=== PATIENT | female | born 1955 | race Caucasian/White ===

== ENCOUNTER → 2020-05-01 | Outpatient (CLI) | payer BC, OTHER ==
[2020-05-01 16:04] VITALS: BP 101/65; PULSE 76; RESP 18; TEMP 97.8
--- NOTE | 2020-05-01 16:20 | P.GSHP ---
History of Present Illness H&P Date: 05/01/20 Chief Complaint: abnormal left breast mammogram and ultrasound [place] is a 65 year old white female seen in consultation for Keerthi Flor regarding a mammographic and ultrasound abnormality in the left breast. On 02-27-20 she had a bilateral screening mammogram for which a left breast mammogram was recommended. She had a left breast mammogram on 03-19-20 which revealed an area of microcalcifications for which stero biopsy was recommended. She also had an ultrasound and at the 9 oclock position an aspiration was recommended which if this failed a core biopsy of site recommended. The patient does not feel anything of concern in either breast. She is not complaining of any pain in her breast. She is not complaining of any abnormal nipple discharge or skin changes. Caffeine: Occasional Nicotine: none [place]-bromine: occasional hormone: none Family History: maternal uncle: prostate Hormonal History: menarche: 18 , breast fed: yes, age at first : 27 menopause: hysterectomy left one ovary; at 40 BCP: 3 years Surgical History: hysterectomy and one ovary tonsillectomy knee surgery cataract bilateral Medical History: diabetes HTN Social History: nicotine: none alcohol: none drugs: none - Constitutional Constitutional: Denies chills, Denies fever - EENT Comment: bilateral cataracts Ears: deny: decreased hearing, tinnitus Ears, nose, mouth and throat: Reports headache - Breasts Breasts: bilateral: as per HPI - Cardiovascular Cardiovascular: Denies chest pain, Denies shortness of breath - Respiratory Respiratory: Denies cough, Denies 7 - Gastrointestinal Gastrointestinal: Denies abdominal pain, Denies diarrhea, Denies nausea, Denies vomiting - Genitourinary (Female) Genitourinary: Reports kidney stones, Denies dysuria, Denies hematuria - Menstruation Menstruation: Reports post hysterectomy - Musculoskeletal Comment: arthritis - Integumentary Integumentary: Denies pruritus, Denies rash - Neurological Neurological: Reports numbness, Reports weakness - Psychiatric Psychiatric: Denies anxiety - Endocrine Comment: diabetic Endocrine: Reports weight change, Denies fatigue - Hematologic/Lymphatic Comment: none - Allergic/Immunologic Allergic/Immunologic: Reports seasonal allergies Past Medical History Past Medical History: Diabetes Mellitus, Deep Vein Thrombosis (DVT), Hypertension Additional Past Medical History / Comment(s): DVT . History of Any Multi-Drug Resistant Organisms: None Reported Past Surgical History: Hysterectomy, Orthopedic Surgery, Tonsillectomy Additional Past Surgical History / Comment(s): Left knee tedon repair Past Anesthesia/Blood Transfusion Reactions: No Reported Reaction Past Psychological History: Anxiety Smoking Status: Never smoker Past Alcohol Use History: Rare Past Drug Use History: None Reported Medications and Allergies Home Medications Medication Instructions Recorded Confirmed Type ALPRAZolam [Xanax] 0.25 mg PO BID PRN 04/22/20 04/22/20 History B Complex-Vit C-Vit E-Zinc [Z-Bec] 1 tab PO DAILY 04/22/20 04/22/20 History Cinnamon Bark [Cinnamon] 500 mg PO DAILY 04/22/20 04/22/20 History Lisinopril-Hctz 20-25 mg 1 tab PO DAILY 04/22/20 04/22/20 History [Zestoretic 20-25] metFORMIN HCL 250 mg PO BID 04/22/20 04/22/20 History Allergies Allergy/AdvReac Type Severity Reaction Status Date / Time aloe vera [From Dermoplast] Allergy Rash/Hives Verified 04/25/20 16:48 bacitracin Allergy Rash/Hives Verified 04/25/20 16:48 [From Neosporin ([id number])] benzocaine [From Dermoplast] Allergy Rash/Hives Verified 04/25/20 16:48 lanolin [From Dermoplast] Allergy Rash/Hives Verified 04/25/20 16:48 neomycin Allergy Rash/Hives Verified 04/25/20 16:48 [From Neosporin ([id number])] Penicillins Allergy Swelling Verified 04/22/20 16:13 polymyxin B Allergy Rash/Hives Verified 04/25/20 16:48 [From Neosporin ([id number])] prednisone Allergy Swelling Verified 04/22/20 16:13 cephalexin [From Keflex] AdvReac Nausea & Verified 04/22/20 16:13 Vomiting Surgical - Exam BMI 33.6 - General well developed, well nourished, no distress - Eyes normal ocular movement - ENT normal pinna, normal nares, no hearing loss - Neck no masses, trachea midline - Respiratory normal expansion, normal respiratory effort, clear to auscultation - Cardiovascular Rhythm: regular Heart Sounds: normal: S1, S2 - Abdomen Abdomen: soft - Integumentary normal turgor - Neurologic no disoriented, no combative - Musculoskeletal Patient has scoliosis normal gait - Psychiatric oriented to time, oriented to person, oriented to place, speech is normal, memory intact breast exam: BRA: 46DD inspection: grade 3 ptosis bilateral, macromastia, bilateral shoulder notching related to large breast palpation: right breast: Multi-positional exam fibrocystic changes, no dominant masses or nodules of concern Right axilla: No adenopathy of concern Left breast: Multiple positional exam fibrocystic changes, no dominant masses or nodules of concern Left axilla: No adenopathy of concern Results Mammogram and ultrasound results reviewed Assessment and Plan Assessment: Impression: diabetes HTN Abnormal mammogram left breast upper outer quadrant microcalcifications Abnormal ultrasound left breast 9 o'clock position Fibrocystic breast changes Macromastia with shoulder notching Back pain probably related to large breast Plan: 1. Left breast sterotactic core biopsy upper outer quadrant 2. Left breast ultrasound aspiration/possible core biopsy 9 o'clock position 3. Follow-up after biopsies done The patient has been recommended to undergo a sterile tactic core biopsy of the left breast upper outer quadrant area for the region of microcalcifications. Alternatives are discussed but not recommended such as watchful waiting or open biopsy. The risks of the procedure include but are not limited to bleeding, infection, reaction to the anesthetic. Following the biopsy clip will be left to localize the area of biopsy. Patient understands and wishes to proceed. Additionally a radiographic ultrasound abnormality was noted in the 9 o'clock position of the left breast for which attempt at aspiration is recommended. If this is unsuccessful ultrasound core biopsy has been recommended. Again risks include but are not limited to bleeding, infection, reaction to the anesthetic. A clip again with the left behind depending on the biopsy. The patient u nderstands and wishes to proceed. She also understands that if this was discordant or was felt that the area was not adequately sampled or atypical than its possible open resection may be needed. Cc: Dr.Lori Flor encounter 45 minutes, > 50% of time in planning and counselling
== END | disposition home or self-care (01) ==
LOC: WWCWWP 15:36
PROVIDERS: ATTEND Surgery
DX: Z53.9 Procedure and treatment not carried out, unspecified reason (principal)

== ENCOUNTER → 2020-05-02 | Day surgery (SDC) | payer BC, OTHER ==
[2020-05-02 07:23] VITALS: RESP 16
--- NOTE | 2020-05-02 08:46 | P.PCN ---
Date of Procedure: 05/02/20 Preoperative Diagnosis: Microcalcifications of concern left breast upper outer quadrant Postoperative Diagnosis: Same Procedure(s) Performed: Stereotactic core biopsy left breast Anesthesia: local Surgeon: Felicitas Lopes Pathology: other (Breast tissue, radiograph reveals calcifications of concern have been sampled) Condition: stable Disposition: same day Indications for Procedure: Microcalcifications of concern left breast Operative Findings: Radiographic of specimen reveals microcalcifications of concern Description of Procedure: The patient is a 65-year-old white female who had a routine mammogram revealing some microcalcifications of concern in the upper outer quadrant of the left breast. Stereotactic core biopsy was recommended. Risks and benefits of the procedure were discussed with the patient as well as alternatives. Patient wished to proceed. The patient was taken to the stereotactic core biopsy room. CC from above approach was utilized. She was positioned prone on the low rad table. A web development manager film was obtained. The calcifications of concern were identified. The skin was prepped using Betadine. 20 mL of 1% lidocaine were used to anesthetize the area of concern. A 9-gauge vacuum-assisted core rotating biopsy needle was driven to the correct coordinates. The needle was fired. Post fire film was obtained. The needle was noted to be in the correct location. 12 specimens were obtained. Radiograph of the specimen revealed the calcifications of concern had been sampled. A secure marked Top-glass forming engineer was placed. An x-ray was attained which revealed this to be in the correct location. The patient tolerated the procedure in stable condition. The specimen is sent to pathology. The patient will follow with Dr. Allen in 1 week. It is felt that the area of concern has been adequately sampled.
[2020-05-02 09:02] VITALS: BP 105/65; PULSE 65; TEMP 98.5
--- NOTE | 2020-05-02 11:53 | USB ---
EXAMINATION TYPE: US discontinued breast asp LT DATE OF EXAM: 05/02/2020 Comparison: Outside ultrasound 05/21/2019 Clinical History: 65-year-old female abnormal mammogram, referred for cyst aspiration/biopsy on the l eft. TECHNIQUE AND FINDINGS: The patient was positioned on the exam stretcher and the 9:00 lesion, Zone-A is identified, correspon ding to the finding on outside mammogram. The area now measures 3 mm and appears cystic versus the 5 mm hypoechoic structure on outside ultrasound. Suspect interval clearing of internal debris. Biopsy i s being deferred at this time. Six-month follow-up is recommended to reassess the mammographic densit y and this area as well. IMPRESSION: 1. Patient had left breast stereotactic core needle biopsy earlier today for calcifications. Patholog y pending. Overall BI-RADS assessment category 4 at this time. RECOMMENDATION: 1. If benign results for the stereotactic core needle biopsy, six-month follow-up diagnostic left kelly ast mammogram and targeted 9:00 left breast ultrasound will be recommended.
--- NOTE | 2020-05-02 11:58 | MM ---
EXAMINATION TYPE: MG stereo VAD BX LT DATE OF EXAM: 05/02/2020 COMPARISON: 03/20/2020 CLINICAL HISTORY: 65-year-old female referred for stereotactic core needle biopsy of left upper outer quadrant microcalcifications. TECHNIQUE: Stereotactic guided core biopsy of the upper outer quadrant left breast. FINDINGS: The procedure of stereotactic guided core biopsy was explained to the patient. Benefits, a lternatives, and risks were discussed. An informed consent was then obtained. [facility]. Shortness pathway was a lateral approach. However, the patient was in too much pain for this position and a CC from above approach was utilized. I performed the localization, then surgeon, Dr. Alejandro Orr performed the remainder of the procedure. A vacuum a ssisted biopsy gun was used to obtain multiple core samples. The patient tolerated the procedure well without any immediate complication. The patient was kept in the radiology department for short stay after the procedure and then discharged home in stable condi tion. Targeted calcifications are identified in specimen mammogram. Post biopsy mammogram shows the clip to appear in satisfactory position relative to the targeted area of concern on the preprocedure images. IMPRESSION: SUCCESSFUL, UNCOMPLICATED STEREOTACTIC GUIDED CORE BIOPSY UPPER OUTER QUADRANT LEFT BREAST LOOSELY GR OUPED MICROCALCIFICATIONS, OVERALL LOW SUSPICION, FULL PATHOLOGY RESULTS TO FOLLOW. NOTE THAT PATIENT IS SCHEDULED FOR AN ULTRASOUND-GUIDED LEFT BREAST BIOPSY/CYST ASPIRATION LATER MARI Sebastian
== END ==
LOC: RADMAMWWP 06:59
PROVIDERS: ATTEND Surgery
DX: N60.12 Diffuse cystic mastopathy of left breast (principal); R92.1 Mammographic calcification found on diagnostic imaging of breast; Z91.048 Other nonmedicinal substance allergy status; Z88.8 Allergy status to other drugs, medicaments and biological substances; Z88.0 Allergy status to penicillin; Z88.1 Allergy status to other antibiotic agents; Z88.4 Allergy status to anesthetic agent
CPT/HCPCS: 88305; 19081; 76641; A4648; J2001

== ENCOUNTER → 2020-05-08 | Outpatient (CLI) | payer BC, OTHER ==
[2020-05-08 12:36] VITALS: BP 108/67; PULSE 68; RESP 18; TEMP 98.4
--- NOTE | 2020-05-08 12:43 | P.PN ---
Subjective Progress Note Date: 05/08/20 Principal diagnosis: stero biopsy results [place] is a 65 year old white female status post a stero biopsy of the left breast on 05-02-20. Pathology was concordant and benign. The patient did well without any complaints. Objective - Vital Signs Vital signs: Vital Signs Temp 98.4 F 05/08/20 12:33 Pulse 68 05/08/20 12:33 Resp 18 05/08/20 12:33 BP 108/67 05/08/20 12:33 Pulse Ox 97 05/08/20 12:33 Intake & Output 05/07/20 05/08/20 05/08/20 18:59 06:59 18:59 Weight 94.801 kg - Exam BMI 33.7 - Constitutional General appearance: Present: average body habitus - EENT Eyes: Present: EOMI - Neck Neck: Present: normal ROM - Respiratory Respiratory: bilateral: CTA - Cardiovascular Rhythm: regular Heart sounds: normal: S1, S2 - Integumentary Integumentary Comment(s): biopsy site reaction to the Steri-Strips which is resolving Mild ecchymosis no evidence of hematoma or infection - Musculoskeletal Musculoskeletal: Present: gait normal - Psychiatric Psychiatric: Present: A&O x's 3, appropriate affect Assessment and Plan Assessment: Impression: Fibrocystic breast changes stereo biopsy left breast Plan: 1. Repeat left breast mammogram in 6 months with physician exam at that time CC: Basia encounter 15 minutes, > 50% of time in planning and counselling
== END | disposition home or self-care (01) ==
LOC: WWCWWP 12:01
PROVIDERS: ATTEND Surgery
DX: Z53.9 Procedure and treatment not carried out, unspecified reason (principal)

== ENCOUNTER → 2020-10-31 | Outpatient (CLI) | payer BC, OTHER ==
--- NOTE | 2020-10-31 12:43 | MM ---
Reason for exam: history of benign breast biopsy. History: Benign MG stereo VAD BX LT of the left breast, May 02, 2020. Physical Findings: Nurse did not find any significant physical abnormalities on exam. MG 3D Diag Mammo W/Cad LT CC and MLO view(s) were taken of the left breast. The breast tissue is heterogeneously dense. This may lower the sensitivity of mammography. Benign calcifications. Previous mammotome biopsy in the left breast. There is chronic nodularity in the left breast. These results were verbally communicated with the patient and result sheet given to the patient on 10/31/20. ASSESSMENT: Benign, BI-RAD 2 RECOMMENDATION: Follow-up diagnostic mammogram of both breasts in 6 months.
== END | disposition home or self-care (01) ==
LOC: RADMAMWWP 11:06
PROVIDERS: ATTEND Surgery
DX: R92.8 Other abnormal and inconclusive findings on diagnostic imaging of breast (principal)
CPT/HCPCS: 77061; 77065

== ENCOUNTER → 2021-11-20 | Outpatient (CLI) | payer BC, OTHER ==
--- NOTE | 2021-11-20 15:49 | MM ---
Reason for Exam: Additional evaluation requested from prior study. Last mammogram was performed 1 year(s) and 8 month(s) ago. Patient History: Menarche at age 18. First Full-Term at age 27. Left ovary removed at age 41. Hysterectomy at age 41. Postmenopausal. Patient used Hormonal Contraceptives for 4 years. 05/02/2020, Benign Core Biopsy on the left side. Risk Values: Jenn 5 year model risk: 1.9%. NCI Lifetime model risk: 7.7%. Tissue Density: There are scattered fibroglandular densities. Findings: Analyzed By CAD. Mammotome biopsy clip in the left breast upper outer aspect posteriorly is redemonstrated. There are scattered benign-appearing round calcifications bilaterally redemonstrated. Some benign-appearing left axillary lymph nodes are redemonstrated. No suspicious new mass or distortion in either breast. Overall Assessment: Benign, BI-RAD 2 Management: Screening Mammogram of both breasts in 1 year. Return to routine follow-up. Results were given to the patient verbally at the time of exam. Electronically signed and approved by: Vishal Dan M.D.
== END | disposition home or self-care (01) ==
LOC: RADMAMWWP 15:05
PROVIDERS: ATTEND Internal Medicine
DX: R92.8 Other abnormal and inconclusive findings on diagnostic imaging of breast (principal)
CPT/HCPCS: 77062; 77066

== ENCOUNTER → 2022-12-17 | Outpatient (CLI) | payer MEDICARE ==
--- NOTE | 2022-12-21 22:52 | MM ---
Reason for Exam: Screening (asymptomatic). Last mammogram was performed 1 year(s) and 1 month(s) ago. Patient History: Menarche at age 18. First Full-Term at age 27. Left ovary removed at age 41. Hysterectomy at age 41. Postmenopausal. Patient has history of breast feeding. Patient used Hormonal Contraceptives for 4 years. 05/02/2020, Benign Core Biopsy on the left side. Risk Values: Jenn 5 year model risk: 2.0%. NCI Lifetime model risk: 7.5%. Prior Study Comparison: 03/20/2020 Left MG 3D work up w/cad LT - 2, [facility]. 10/31/2020 Left Diagnostic Mammogram, [facility]. 11/20/2021 Bilateral MG 3D diag mammo w/cad SYDNI, [facility]. Tissue Density: There are scattered fibroglandular densities. Findings: Analyzed By CAD. Scattered benign round calcifications bilaterally. Left upper outer quadrant microclip from prior biopsy. Associated density here remains unchanged as well. There is no suspicious group of microcalcifications or new suspicious mass in either breast. Overall Assessment: Benign, BI-RAD 2 Management: Screening Mammogram of both breasts in 1 year. . Patient should continue monthly self-breast exams. A clinical breast exam by your physician is recommended on an annual basis. This exam should not preclude additional follow-up of suspicious palpable abnormalities. Note on Jenn scores and lifetime risk: 1. A Jenn score greater than 3% is considered moderate risk. If this is the case, consider specialist referral to assess eligibility for a risk reducing agent. 2. If overall lifetime risk for the development of breast cancer is 20% or higher, the patient may qualify for future screening with alternating mammogram and breast MRI. Electronically signed and approved by: Geovanny Guerrero M.D. Radiologist
== END | disposition home or self-care (01) ==
LOC: RADMAMWWP 13:17
PROVIDERS: ATTEND Family Medicine
DX: Z12.31 Encounter for screening mammogram for malignant neoplasm of breast (principal); Z78.0 Asymptomatic menopausal state
CPT/HCPCS: 77063; 77067

== ENCOUNTER → 2024-03-16 | Outpatient (CLI) | payer MEDICARE ==
--- NOTE | 2024-03-19 11:58 | MM ---
Reason for Exam: Screening (asymptomatic). Last mammogram was performed 1 year(s) and 2 month(s) ago. Patient History: Menarche at age 18. First Full-Term at age 27. Left ovary removed at age 41. Hysterectomy at age 41. Postmenopausal. Patient has history of breast feeding. Patient used Hormonal Contraceptives for 4 years. 05/02/2020, Benign Core Biopsy on the left side. Risk Values: Jenn 5 year model risk: 2.0%. NCI Lifetime model risk: 6.9%. Prior Study Comparison: 10/31/2020 Left Diagnostic Mammogram, [facility]. 11/20/2021 Bilateral MG 3D diag mammo w/cad SYDNI, [facility]. 12/17/2022 Bilateral MG 3D screening mammo w/cad, [facility]. Tissue Density: There are scattered areas of fibroglandular density. Findings: Analyzed By CAD. Benign bilateral round calcifications. There is no suspicious group of microcalcifications or new suspicious mass in either breast. Overall Assessment: Benign, BI-RAD 2 Management: Screening Mammogram of both breasts in 1 year. . Patient should continue monthly self-breast exams. A clinical breast exam by your physician is recommended on an annual basis. This exam should not preclude additional follow-up of suspicious palpable abnormalities. Note on Jenn scores and lifetime risk: 1. A Jenn score greater than 3% is considered moderate risk. If this is the case, consider specialist referral to assess eligibility for a risk reducing agent. 2. If overall lifetime risk for the development of breast cancer is 20% or higher, the patient may qualify for future screening with alternating mammogram and breast MRI. [facility], , 03/19/2024 11:55 AM. Electronically signed and approved by: Geovanny Guerrero M.D. Radiologist
== END | disposition home or self-care (01) ==
LOC: RADMAMWWP 07:21
PROVIDERS: ATTEND Family Medicine
DX: Z12.31 Encounter for screening mammogram for malignant neoplasm of breast (principal); Z90.721 Acquired absence of ovaries, unilateral; Z78.0 Asymptomatic menopausal state; R92.323 Mammographic fibroglandular density, bilateral breasts
CPT/HCPCS: 77063; 77067